=== PATIENT | female | born 2000 | race Caucasian/White ===

== ENCOUNTER 2018-06-06 16:07 | Emergency (ER) | payer SELFPAY ==
[2018-06-06 16:26] VITALS: BP 123/70
--- NOTE | 2018-06-06 16:48 | UC ---
Throat Pain/Nasal [place]quito HPI - HPI Summary HPI Summary: Patient has had swollen tonsils for 2 weeks, she is also complaining of bodyaches and fatique. denies any fever, [facility] but the tonsils are still swollen. - History of Current Complaint Chief Complaint: UCGeneralIllness Stated Complaint: SORE THROAT, AND FEVER Time Seen by Provider: 06/06/18 16:34 Hx Obtained From: Patient Hx Last Menstrual Period: [id number] ?: No Onset/Duration: Sudden Onset, Lasting Weeks Severity: Moderate Pain Intensity: 4 Associated Signs & Symptoms: Positive: Dysphagia - Allergies/Home Medications Allergies/Adverse Reactions: Allergies Allergy/AdvReac Type Severity Reaction Status Date / Time No Known Allergies Allergy Verified 06/06/18 16:27 Home Medications: Home Medications Desogestrel-Ethinyl Estradiol [Juleber 0.15-30 mg-Mcg] 1 tab PO DAILY 06/06/18 [ History Confirmed 06/06/18] Lisdexamfetamine Dimesylate [Vyvanse] 30 mg PO DAILY 06/06/18 [History Confirmed 06/06/18] PMH/Surg Hx/FS Hx/Imm Hx Previously Healthy: Yes - Surgical History Surgical History: Yes Surgery Procedure, Year, and Place: appy - Family History Known Family History: Positive: Hypertension - Social History Alcohol Use: Weekly Substance Use Type: None Smoking Status (MU): Never Smoked Tobacco Review of Systems All Other Systems Reviewed And Are Negative: Yes Constitutional: Positive: Fatigue Skin: Positive: Negative Eyes: Positive: Negative ENT: Positive: Sore Throat Respiratory: Positive: Cough Cardiovascular: Positive: Negative Gastrointestinal: Positive: Negative Genitourinary: Positive: Negative Motor: Positive: Negative Neurovascular: Positive: Negative Musculoskeletal: Positive: Negative Neurological: Positive: Headache Psychological: Positive: Negative Is Patient Immunocompromised?: No Physical Exam Triage Information Reviewed: Yes Appearance: Well-Nourished, Ill-Appearing, Pain Distress Vital Signs: Initial Vital Signs Temp 98.3 F 06/06/18 16:21 Pulse 77 06/06/18 16:21 Resp 16 06/06/18 16:21 BP 123/70 06/06/18 16:21 Pulse Ox 100 06/06/18 16:21 Vital Signs Reviewed: Yes Eye Exam: Normal ENT: Positive: TM bulging, Tonsillar exudate - +3 Dental Exam: Normal Neck exam: Normal Respiratory Exam: Normal Respiratory: Positive: Chest non-tender, Lungs clear, Normal breath sounds Cardiovascular Exam: Normal Cardiovascular: Positive: RRR, No Murmur, Pulses Normal Bowel Sounds: Positive: Present Musculoskeletal Exam: Normal Neurological Exam: Normal Psychological Exam: Normal Skin Exam: Normal Throat Pain/Nasal Course/Dx - Course Course Of Treatment: hx obtained, exam performed ,meds reviewed, blood work obtained and steroids prescribed. patient requesting the blood work, she has no signs of bacterial infection at this time. - Differential Dx/Diagnosis Differential Diagnosis/HQI/PQRI: Mononucleosis, Otitis Media, Pharyngitis, Sinusitis, URI Provider Diagnosis: Mononucleosis Discharge - Sign-Out/Discharge Documenting (check all that apply): Patient Departure All imaging exams completed and their final reports reviewed: No Studies - Discharge Plan Condition: Stable Disposition: HOME Patient Education Materials: Mononucleosis (ED) Referrals: No Primary Care Phys,NOPCP [Primary Care Provider] - Additional Instructions: 1. TAKE THE MEDICATION PRESCRIBED. 2. GET PLENTY OF REST AND FLUIDS - Billing Disposition and Condition Condition: STABLE Disposition: Home
== END 2018-06-06 17:30 | disposition home or self-care (01) ==
LOC: UCEAST 16:07
DX: B27.90 Infectious mononucleosis, unspecified without complication (principal)
CPT/HCPCS: 36415; 86308; 86664; 86665; 99201; G0463